=== PATIENT | female | born 1990 | race Caucasian/White ===

== ENCOUNTER → 2016-07-01 | Outpatient (CLI) | payer OTHER ==
[2016-07-01 14:40] LABS: BASOPHILS # (AUTO) 0.06 10*3/UL; BASOPHILS % (AUTO) 0.6 % (0-1); EOSINOPHILS % (AUTO) 1.7 % (0-8); HEMATOCRIT 38.4 % (37.0-47.0); HEMOGLOBIN 12.5 g/dL (12.0-16.0); IMM GRAN % (AUTO) 0.2 % (0-5); IMM GRAN# (AUTO) 0.02 10*3/UL; LYMPHOCYTES % (AUTO) 27.7 % (10-50); MEAN CORPUSCULAR HEMOGLOBIN 29.5 PG (27-31); MEAN CORPUSCULAR HGB CONC 32.6 g/dL (33-37); MEAN PLATELET VOLUME 9.9 FL (7.4-12.2); MONOCYTES # (AUTO) 0.79 10*3/UL (0.3-0.8); MONOCYTES % (AUTO) 8.4 % (5-15); NEUTROPHILS # (AUTO) 5.77 10*3/UL; NEUTROPHILS % (AUTO) 61.4 % (50-80); RDW COEFFICIENT OF VARIATION 12.6 % (11.5-14.5); RED BLOOD COUNT 4.24 10^6/uL (4.20-5.40)
[2016-07-01 14:41] LABS: BILIRUBIN,URINE NEGATIVE (NEG); CLARITY,URINE CLEAR (CLEAR); GLUCOSE, URINE (UA) NEGATIVE (NEG); LEUKOCYTE ESTERASE ,URINE TRACE (NEG); NITRATE,URINE NEGATIVE (NEG); OCCULT BLOOD,URINE NEGATIVE (NEG); PROTEIN,URINE NEGATIVE (NEG); UROBILINOGEN,URINE 0.2 mg/dL (0.2)
[2016-07-01 14:46] LABS: PLATELET MORPHOLOGY COMMENT NORMAL MORPHOLOGY (NORM); PRENATAL QUESTION YES (Y)
[2016-07-01 15:02] LABS: URINE SAMPLE TYPE CLEAN CATCH URINE
[2016-07-01 15:03] LABS: BACTERIA,URINE RARE; SQUAMOUS EPITHELIAL CELL,UR RARE
[2016-07-01 15:25] LABS: HIV ANTIBODY NEGATIVE (N); HIV-1 P24 ANTIGEN NEGATIVE (N)
[2016-07-03 10:46] LABS: HEP B SURFACE AG Negative (Negative)
[2016-07-03 13:50] LABS: RUBELLA IGG INDEX 0.6 (()); SYPHILIS IGG WITH REFLEX Negative (Negative)
== END ==
LOC: MOB LAB 13:38
PROVIDERS: ATTEND Obstetrics & Gynecology
DX: Z36 Encounter for antenatal screening of mother (principal)
CPT/HCPCS: 36415; 80081; 81001; 86900; 86901; 87077; 87088; 87186; 87491; 87591

== ENCOUNTER → 2016-07-30 | Outpatient (CLI) | payer OTHER ==
--- NOTE | 2016-07-30 19:35 | DI ---
OBSTETRICAL ULTRASOUND, 07/30/2016 3:13 PM: Clinical History: Vaginal bleeding in a patient at less than 20 weeks gestation. Previous Exam: None at this facility for this . LMP: 05/08/2016. There is a single live IUP currently in unstable position. Amnionic fluid content is normal. The plac enta is posterior corpus and lower uterine segment and Grade 0. There is no evidence of an abruption or of a subchorionic hemorrhage. The uterine canal is visualized and has hypoechoic material within i t, probably representing blood. The bladder is filled and this probably is creating artifactually carmen ngation of the cervical canal. The technologist measured the canal has been approximately 63 mm in le ngth but actually may be closer to 45 mm in length. Heart rate is 183 beats/minute and regular. Both ovaries are normal. CRL measurement is 51 mm. This measurement corresponds to an EGA value of 11 week s 6 days. The US EDC is 02/12/2017. EDC by LMP is also 02/12/2017. Readin. Single live fetus with unstable presentation and normal amniotic fluid content. Placenta is poste rior corpus and lower uterine segment and grade 0. There is no evidence of an abruption or placenta p revia. There is no subchorionic hemorrhage. Fluid is present in the cervical canal. The estimated prabhjot gth of the cervix is between 45 to as high as 63 mm. 2. The composite EGA is 11 weeks 6 days with an ultrasound EDC of 02/12/2017.
== END ==
LOC: US 15:09
PROVIDERS: ATTEND Obstetrics & Gynecology
DX: O20.9 Hemorrhage in early pregnancy, unspecified (principal)
CPT/HCPCS: 76801

== ENCOUNTER → 2016-09-19 | Outpatient (CLI) | payer OTHER | LOC: LAB 09:43 | PROVIDERS: ATTEND Obstetrics & Gynecology | DX: O99.212 Obesity complicating pregnancy, second trimester (principal); Z36 Encounter for antenatal screening of mother; Z3A.19 19 weeks gestation of pregnancy | CPT/HCPCS: 36415; 82950 ==

== ENCOUNTER → 2016-10-01 | Outpatient (CLI) | payer OTHER ==
--- NOTE | 2016-10-01 20:48 | DI ---
US OB GTE 14 WEEKS,10/01/2016 1:45 PM: Clinical History: screening for malformation Previous Exam: July 30, 2016 Findings: Multiple sonographic images are obtained through the pelvis demonstrating a normal cervix measuring 7 .6 cm in length. Anatomy is unremarkable. A normal four-chamber heart is noted with detected Doppler heart tones of 156 beats per minute. anatomic survey is unremarkable. Estimated gestational age was determined by a composite of biparietal diameter, head circumference, a bdominal circumference and femur length yielding an estimated gestational age by ultrasound of 21 wee ks 6 days. Estimated weight is 480 g (97th percentile). Impression: Single live intrauterine gestation with size measuring greater than dates predominantly due to and ab dominal circumference which lies at the 97th percentile.
== END ==
LOC: US 13:42
PROVIDERS: ATTEND Obstetrics & Gynecology
DX: Z36 Encounter for antenatal screening of mother (principal); Z3A.20 20 weeks gestation of pregnancy
CPT/HCPCS: 76805

== ENCOUNTER → 2016-11-19 | Outpatient (CLI) | payer OTHER ==
[2016-11-19 14:11] LABS: HEMATOCRIT 32.5 % (37.0-47.0); HEMOGLOBIN 10.6 g/dL (12.0-16.0); MEAN CORPUSCULAR HEMOGLOBIN 29.9 PG (27-31); MEAN CORPUSCULAR HGB CONC 32.6 g/dL (33-37); MEAN CORPUSCULAR VOLUME 91.5 FL (81-99); MEAN PLATELET VOLUME 10.2 FL (7.4-12.2); RED BLOOD COUNT 3.55 10^6/uL (4.20-5.40)
== END ==
LOC: LAB 12:39
PROVIDERS: ATTEND Obstetrics & Gynecology
DX: Z36 Encounter for antenatal screening of mother (principal); Z3A.27 27 weeks gestation of pregnancy
CPT/HCPCS: 36415; 82950; 85027